=== PATIENT | male | born 1950 | race Caucasian/White ===

== ENCOUNTER 2019-03-03 10:58 | Day surgery (SDC) | payer BC ==
[~2019-03-03] VITALS: Ht 182.9 cm; Wt 89.8 kg
[2019-03-03] VITALS (9 sets, daily range): BP systolic 135–165; BP diastolic 69–96; PULSE 61–79; TEMP 97.4–97.9
[2019-03-03] MEDS ORDERED: TYLENOL 500MG500 MG PO (12:10)
--- NOTE | 2019-03-03 12:10 | NUR ---
TO RM AT 1125-CALL LIGHT IN REACH
--- NOTE | 2019-03-03 12:17 | NUR ---
Initial visit; Patient thanked Wireline Supervisor for offering prayer prior to his surgical procedure though declined. Wireline Supervisor wished him well.
--- NOTE | 2019-03-03 15:20 | NUR ---
Pt arrived via bed, report from Abida. Started on Post-Op vitals, family in room. Pt very UNA[place]KLEET, reads lips. CBI hanging, LR to straight tubing, feliciano to DD with peach colored urine. Pt in gown, warm blankets. Call light in reach.
--- NOTE | 2019-03-03 18:08 | NUR ---
Pt robina ice chips, water, maame pudding. visiting. SCDs and glasses in place, urine pink, CBI slow. IV LR still infusing to straight tubing.
--- NOTE | 2019-03-03 19:20 | NUR ---
Report to ABENA Rao.
--- NOTE | 2019-03-03 20:20 | NUR ---
Pt. sitting up in bed with at bedside. Pt. is A&OX3, assessment complete. Mcginnis catheter with CBI running at a slow rate, urine is pink, no clots noted. INT to rt. ac patent. Pt. reports pain at a 2-3, will give Tyelnol with evening meds. Pt. voices understanding. Pt. denies further needs, call light within reach.
[2019-03-04] VITALS: BP 137/72; PULSE 73; TEMP 97.9
--- NOTE | 2019-03-04 05:49 | NUR ---
Pt. slept well through the night. Pt. remains A&OX3. INT to rt. ac remains patent. Mcginnis catheter with CBI running, urine is pink, no clots noted. Pt. denies pain or other needs at this time. Call light within reach.
--- NOTE | 2019-03-04 06:58 | NUR ---
Report from Jalen KRAFT.
[2019-03-04 07:48] VITALS: BP 144/74; PULSE 90; TEMP 98.4
--- NOTE | 2019-03-04 08:33 | NUR ---
PT CALLING FOR TYLENOL FOR PAIN. 650 PO GIVEN PER ORDERS. PT HAD NO OTHER WANTS OR NEEDS AT THIS TIME.
[2019-03-04 12:15] VITALS: BP 164/73; PULSE 90; TEMP 97.8
--- NOTE | 2019-03-04 12:36 | NUR ---
Soil Field Technician offered to pray but nothing needed at this time.
--- NOTE | 2019-03-04 12:48 | NUR ---
IN TO SEE PATEINT. PRIMED AND PULLED AND BEGAN 6 BOTTLE ROUTINE. TIP INTACT AND PT TOLERATED PROCEEDURE WELL. INITIAL URINE BRIGHT RED.
--- NOTE | 2019-03-04 12:51 | NUR ---
REMOVED INT. PT TOLERATED WELL.
[2019-03-04 16:23] VITALS: BP 143/62; PULSE 56; TEMP 99.5
--- NOTE | 2019-03-04 16:43 | NUR ---
DISCHARGE INSTRUCTIONS PROVIDED TO PATIENT AND SPOUSE QUESTIONS ANSWERED. PT TAKEN TO FRONT VIA WC.
== END 2019-03-04 16:51 | disposition home or self-care (01) ==
LOC: SDCO 10:58 → SURG 15:10 → SDCO 03-04 16:51
DX: N40.1 Benign prostatic hyperplasia with lower urinary tract symptoms (principal); N13.8 Other obstructive and reflux uropathy; R35.0 Frequency of micturition; R39.15 Urgency of urination; R39.12 Poor urinary stream; J44.9 Chronic obstructive pulmonary disease, unspecified; E78.00 Pure hypercholesterolemia, unspecified; Z87.442 Personal history of urinary calculi; Z85.820 Personal history of malignant melanoma of skin; H91.10 Presbycusis, unspecified ear; L40.9 Psoriasis, unspecified; F17.210 Nicotine dependence, cigarettes, uncomplicated; Z83.3 Family history of diabetes mellitus; Z82.49 Family history of ischemic heart disease and other diseases of the circulatory system; Z84.1 Family history of disorders of kidney and ureter; Z80.42 Family history of malignant neoplasm of prostate; Z80.8 Family history of malignant neoplasm of other organs or systems
CPT/HCPCS: OP; J2250; J2704; J3010; J7120